=== PATIENT | male | born 1990 | race Caucasian/White ===

== ENCOUNTER 2016-05-21 20:07 | Emergency (ER) | payer SELFPAY ==
[2016-05-21] MEDS ORDERED: Dexamethasone 4 mg/ml Vial ONE (20:18)
[2016-05-21] MEDS ORDERED: Bicillin CR 1.2 MILL UNITS/2 ML SYRINGE ONE (20:18)
== END 2016-05-21 20:36 | disposition home or self-care (01) ==
LOC: BURERS 20:07
DX: J03.90 Acute tonsillitis, unspecified (principal); F17.210 Nicotine dependence, cigarettes, uncomplicated
CPT/HCPCS: 96372; J0558; J1100

== ENCOUNTER 2016-09-06 23:21 | Emergency (ER) | payer OTHER, SELFPAY ==
[2016-09-06] MEDS ORDERED: Ketorolac Tromethamine 60 MG/2 ML VIAL ONE (23:37)
[2016-09-06] MEDS ORDERED: Sulfameth/Trimethoprim DS 800-160mg TAB ONE (23:37)
== END 2016-09-06 23:50 | disposition home or self-care (01) ==
LOC: BURERS 23:21
DX: L03.116 Cellulitis of left lower limb (principal); F17.210 Nicotine dependence, cigarettes, uncomplicated
CPT/HCPCS: 96372; J1885

== ENCOUNTER 2017-01-23 13:14 | Emergency (ER) | payer OTHER, SELFPAY | END 2017-01-23 13:34 | disposition home or self-care (01) | LOC: BURERS 13:14 | DX: S93.402A Sprain of unspecified ligament of left ankle, initial encounter (principal); F17.210 Nicotine dependence, cigarettes, uncomplicated; X58.XXXA Exposure to other specified factors, initial encounter; Y93.67 Activity, basketball | CPT/HCPCS: 99283 ==

== ENCOUNTER 2017-08-18 22:58 | Emergency (ER) | payer BC, SELFPAY ==
[2017-08-18] MEDS ORDERED: Ibuprofen 800 MG TAB ONE (23:12)
--- NOTE | 2017-08-19 12:20 | RAD ---
RIGHT FOOT 3 VIEWS: DATE: 08/18/17. COMPARISON: Comparison is made with a 12/27/15 study. FINDINGS: There has been no adverse interval change. No fracture or acute joint abnormality is seen. The grea t toe appears intact. There may have been old trauma at the ankle, but the appearance is unchanged s [email or web address]. IMPRESSION: No acute finding. POS: HOME
== END 2017-08-18 23:40 | disposition home or self-care (01) ==
LOC: BURERS 22:58
DX: M79.674 Pain in right toe(s) (principal); F17.210 Nicotine dependence, cigarettes, uncomplicated

== ENCOUNTER 2018-01-11 13:00 | Emergency (ER) | payer BC ==
--- NOTE | 2018-01-12 07:23 | RAD ---
LEFT WRIST 3 VIEWS: DATE: 01/11/2018. FINDINGS: No fracture or carpal abnormality was seen. All bones appeared normal. IMPRESSION: No acute finding. POS: HOME
== END 2018-01-11 13:51 | disposition home or self-care (01) ==
LOC: BURERS 13:00
DX: M65.842 Other synovitis and tenosynovitis, left hand (principal); F17.210 Nicotine dependence, cigarettes, uncomplicated

== ENCOUNTER 2018-03-05 11:38 | Emergency (ER) | payer BC | END 2018-03-05 12:30 | disposition home or self-care (01) | LOC: BURERS 11:38 | DX: J20.9 Acute bronchitis, unspecified (principal); F17.210 Nicotine dependence, cigarettes, uncomplicated | CPT/HCPCS: 99283 ==

== ENCOUNTER 2018-04-15 10:13 | Emergency (ER) | payer BC, SELFPAY | END 2018-04-15 10:34 | disposition home or self-care (01) | LOC: BURERS 10:13 | DX: S39.012A Strain of muscle, fascia and tendon of lower back, initial encounter (principal); F17.210 Nicotine dependence, cigarettes, uncomplicated; X58.XXXA Exposure to other specified factors, initial encounter | CPT/HCPCS: 99283 ==

== ENCOUNTER 2018-07-02 03:25 | Emergency (ER) | payer BC, SELFPAY | END 2018-07-02 03:43 | disposition home or self-care (01) | LOC: BURERS 03:25 | DX: J30.9 Allergic rhinitis, unspecified (principal); F17.210 Nicotine dependence, cigarettes, uncomplicated | CPT/HCPCS: 99406 ==

== ENCOUNTER 2018-12-11 13:43 | Emergency (ER) | payer BC, SELFPAY ==
[2018-12-11] MEDS ORDERED: Fluorescein Opthalmic Strip ONE (13:59)
[2018-12-11] MEDS ORDERED: Tetracaine 0.5% OPHTH SOLN/PF 4 ML BOT ONE (13:59)
[2018-12-11] MEDS ORDERED: Neomycin-Polymyxin-Hc 7.5 ML BOT ONE (14:19)
== END 2018-12-11 14:30 | disposition home or self-care (01) ==
LOC: BURERS 13:43
DX: S05.02XA Injury of conjunctiva and corneal abrasion without foreign body, left eye, initial encounter (principal); F17.210 Nicotine dependence, cigarettes, uncomplicated; X58.XXXA Exposure to other specified factors, initial encounter
CPT/HCPCS: 99283

== ENCOUNTER 2019-07-21 21:16 | Emergency (ER) | payer BC, SELFPAY | END 2019-07-21 22:00 | disposition home or self-care (01) | LOC: BURERS 21:16 | DX: M79.674 Pain in right toe(s) (principal); M10.9 Gout, unspecified; F17.210 Nicotine dependence, cigarettes, uncomplicated | CPT/HCPCS: 99281 ==

== ENCOUNTER 2019-09-27 22:34 | Emergency (ER) | payer BC ==
[2019-09-27] MEDS ORDERED: Bacitracin 1 PK ONE (22:56)
[2019-09-27] MEDS ORDERED: Cephalexin 250 MG CAP ONE (23:11)
== END 2019-09-27 23:14 | disposition home or self-care (01) ==
LOC: BURERS 22:34
DX: S91.114A Laceration without foreign body of right lesser toe(s) without damage to nail, initial encounter (principal); F17.210 Nicotine dependence, cigarettes, uncomplicated; X58.XXXA Exposure to other specified factors, initial encounter
CPT/HCPCS: 99282

== ENCOUNTER 2019-11-02 02:11 | Emergency (ER) | payer BC ==
[2019-11-02] MEDS ORDERED: Ibuprofen 200 MG TAB ONE (02:34)
== END 2019-11-02 02:40 | disposition home or self-care (01) ==
LOC: BURERS 02:11
DX: M10.9 Gout, unspecified (principal); E66.9 Obesity, unspecified; Z87.891 Personal history of nicotine dependence
CPT/HCPCS: 99283

== ENCOUNTER 2019-12-18 13:49 | Outpatient (CLI) | payer OTHER | END 2019-12-18 13:50 | disposition home or self-care (01) | LOC: BURLAB 13:49 | PROVIDERS: ATTEND Physician Assistant | DX: M25.572 Pain in left ankle and joints of left foot (principal) | CPT/HCPCS: 36415; 84550 ==

== ENCOUNTER 2020-02-03 13:46 | Outpatient (CLI) | payer OTHER ==
--- NOTE | 2020-02-03 17:55 | RAD ---
LEFT ANKLE THREE VIEWS: 02/03/20 Comparison is made with an 12/01/09 study. Soft tissue swelling is present. It is evident that in the interim there has been trauma to the ankle with resulting tiny flecks of tone in the soft tissues beneath each malleolus. These really appear m ore likely old than new. No significant acute fracture was seen. No obvious defects are seen in the d ome of the talus. The calcaneus and proximal tarsals appear intact. IMPRESSION: Soft tissue swelling with abundant evidence of prior trauma around each malleolus between 2009 and no w. POS: HOME
== END 2020-02-03 13:47 | disposition home or self-care (01) ==
LOC: BURRAD 13:46
PROVIDERS: ATTEND Physician Assistant
DX: S99.912A Unspecified injury of left ankle, initial encounter (principal); M79.89 Other specified soft tissue disorders

== ENCOUNTER 2020-06-22 18:54 | Emergency (ER) | payer BC, SELFPAY ==
[2020-06-22] MEDS ORDERED: Ketorolac Tromethamine 30 MG/ML VIAL ONE (19:46)
== END 2020-06-22 19:52 | disposition home or self-care (01) ==
LOC: BURERS 18:54
DX: M10.9 Gout, unspecified (principal); Z87.891 Personal history of nicotine dependence
CPT/HCPCS: 96372; J1885

== ENCOUNTER 2021-01-30 00:46 | Emergency (ER) | payer SELFPAY ==
[2021-01-30] MEDS ORDERED: Dexamethasone 10 MG/ML VIAL ONE (01:26)
== END 2021-01-30 01:48 | disposition home or self-care (01) ==
LOC: BURERS 00:46
DX: M10.9 Gout, unspecified (principal)
CPT/HCPCS: 96372; 99283; J1100

== ENCOUNTER 2021-08-02 11:15 | Emergency (ER) | payer OTHER, SELFPAY | END 2021-08-02 12:00 | disposition home or self-care (01) | LOC: BURERS 11:15 | DX: M25.562 Pain in left knee (principal); M10.9 Gout, unspecified; E66.9 Obesity, unspecified | CPT/HCPCS: 99283 ==

== ENCOUNTER 2021-08-12 15:45 | Emergency (ER) | payer OTHER | END 2021-08-12 17:13 | disposition home or self-care (01) | LOC: BURERS 15:45 | DX: S83.91XA Sprain of unspecified site of right knee, initial encounter (principal); M19.90 Unspecified osteoarthritis, unspecified site; M10.9 Gout, unspecified; W51.XXXA Accidental striking against or bumped into by another person, initial encounter; Y93.67 Activity, basketball ==

== ENCOUNTER 2021-09-12 18:15 | Emergency (ER) | payer OTHER ==
[2021-09-12] MEDS ORDERED: Sulfameth/Trimethoprim DS 800-160mg TAB ONE (19:32)
== END 2021-09-12 19:35 | disposition home or self-care (01) ==
LOC: BURERS 18:15
DX: L03.116 Cellulitis of left lower limb (principal)
CPT/HCPCS: 99283

== ENCOUNTER 2021-09-15 13:29 | Emergency (ER) | payer OTHER ==
[2021-09-15] MEDS ORDERED: Cephalexin 250 MG CAP ONE ×2 (13:54→13:56)
[2021-09-15] MEDS ORDERED: Ondansetron PF 4 MG/2 ML Vial ONE (13:55)
[2021-09-15] MEDS ORDERED: Ibuprofen 100 MG/5 ML UDCUP ONE (13:55)
[2021-09-15] MEDS ORDERED: Acetaminophen 325 MG Suppository ONE (13:55)
== END 2021-09-15 14:05 | disposition home or self-care (01) ==
LOC: BURERS 13:29
DX: L03.116 Cellulitis of left lower limb (principal); M10.9 Gout, unspecified; M19.90 Unspecified osteoarthritis, unspecified site; E66.9 Obesity, unspecified; Z68.45 Body mass index [BMI] 70 or greater, adult
CPT/HCPCS: 99283; J2405

== ENCOUNTER 2022-06-04 10:54 | Emergency (ER) | payer OTHER ==
[2022-06-04] MEDS ORDERED: Dexamethasone 10 MG/ML VIAL ONE (11:14)
== END 2022-06-04 11:18 | disposition home or self-care (01) ==
LOC: BURERS 10:54
DX: M10.9 Gout, unspecified (principal)
CPT/HCPCS: 99283; J1100

== ENCOUNTER 2022-09-17 22:47 | Emergency (ER) | payer OTHER ==
[2022-09-17] MEDS ORDERED: Sulfameth/Trimethoprim DS 800-160mg TAB ONE (23:15)
[2022-09-17] MEDS ORDERED: Cephalexin 250 MG CAP ONE (23:15)
== END 2022-09-17 23:20 | disposition home or self-care (01) ==
LOC: BURERS 22:47
DX: L03.115 Cellulitis of right lower limb (principal)
CPT/HCPCS: 99283

== ENCOUNTER 2022-12-24 20:30 | Emergency (ER) | payer OTHER ==
[2022-12-24] MEDS ORDERED: Ibuprofen 200 MG TAB ONE (21:38)
[2022-12-24] MEDS ORDERED: predniSONE 20 MG TAB ONE (21:38)
== END 2022-12-24 22:32 | disposition home or self-care (01) ==
LOC: BURERS 20:30
DX: M70.31 Other bursitis of elbow, right elbow (principal)
CPT/HCPCS: 99283; J7512

== ENCOUNTER 2023-02-01 08:49 | Outpatient (CLI) | payer OTHER | END 2023-02-01 08:50 | disposition home or self-care (01) | LOC: BURRAD 08:49 | PROVIDERS: ATTEND Physician Assistant | DX: M25.521 Pain in right elbow (principal) ==

== ENCOUNTER 2023-09-21 16:40 | Emergency (ER) | payer BC ==
[2023-09-21] MEDS ORDERED: predniSONE 20 MG TAB ONE (17:22)
== END 2023-09-21 17:27 | disposition home or self-care (01) ==
LOC: BURERS 16:40
DX: S63.501A Unspecified sprain of right wrist, initial encounter (principal); F17.290 Nicotine dependence, other tobacco product, uncomplicated; X58.XXXA Exposure to other specified factors, initial encounter
CPT/HCPCS: J7512

== ENCOUNTER 2023-12-18 05:08 | Emergency (ER) | payer BC ==
[2023-12-18] MEDS ORDERED: predniSONE 20 MG TAB ONE (05:32)
== END 2023-12-18 05:41 | disposition home or self-care (01) ==
LOC: BURERS 05:08
DX: M10.9 Gout, unspecified (principal); F17.290 Nicotine dependence, other tobacco product, uncomplicated
CPT/HCPCS: 99283; J7512

== ENCOUNTER 2024-01-21 17:21 | Emergency (ER) | payer BC, SELFPAY ==
[2024-01-21] MEDS ORDERED: Ketorolac Tromethamine 30 MG (1 mL) VIAL ONE (17:53)
== END 2024-01-21 18:02 | disposition home or self-care (01) ==
LOC: BURERS 17:21
DX: M72.2 Plantar fascial fibromatosis (principal); F17.290 Nicotine dependence, other tobacco product, uncomplicated
CPT/HCPCS: 96372; 99283; J1885

== ENCOUNTER 2024-03-28 22:08 | Emergency (ER) | payer SELFPAY ==
[2024-03-28] MEDS ORDERED: Naproxen 500 MG TAB ONE (22:30)
[2024-03-28] MEDS ORDERED: Colchicine 0.6 MG TAB ONE (22:30)
== END 2024-03-28 23:28 | disposition home or self-care (01) ==
LOC: BURERS 22:08
DX: M17.0 Bilateral primary osteoarthritis of knee (principal); F17.290 Nicotine dependence, other tobacco product, uncomplicated; M10.9 Gout, unspecified
CPT/HCPCS: 99283